=== PATIENT | male | born 1950 | race Caucasian/White ===

== ENCOUNTER 2016-12-06 12:43 | Day surgery (SDC) | payer MEDICARE, BC ==
[2016-12-06] MEDS ORDERED: LIDOCAINE 2% MDV (20MG/ML) 20ML VIAL IV ONE (14:00)
[2016-12-06] MEDS ORDERED: MIDAZOLAM HCL 2MG/2ML VIAL IV ONE (14:00)
[2016-12-06] MEDS ORDERED: PROPOFOL 10 MG/ML VIAL IV ONE (14:00)
--- NOTE | 2016-12-08 13:00 | Operative Note ---
DATE OF SURGERY: 12/06/2016 Surgeon: Cali Osborn DO Referring physician: Michael Tinsley DO OPERATION: COLONOSCOPY TO THE CECUM WITH COLD BIOPSY FORCEPS POLYPECTOMY x2, AND COLD SNARE POLYPECTOMY x3. INDICATION: Prior history of colon polyps. The patient returns at this time for surveillance. Intravenous sedation was administered by the Department of Anesthesiology and included Diprivan titrated to effect. PROCEDURE: Following informed consent from this alert individual, including a discussion of the risks and benefits of the procedure and then opportunity for the patient to ask questions, the patient was in the left lateral decubitus position. Digital rectal examination was performed. No abnormalities were noted. Following this, the Olympus PCF 180 Video Colonoscope was inserted in the rectum without resistance. The rectal mucosa had a normal appearance with normal folds and distensibility. The colonoscope was advanced up through the colon to the level of the cecum without much difficulty. Throughout the bowel, the mucosa appeared normal, folds were normal. The bowel was filled with distensible. The cecum was defined by noting the appendiceal orifice and the ileocecal valve. The colon preparation was good. Retroflexion in the cecum failed to demonstrate changes. At the base of the cecum, at the level of the appendicial orifice, there were two diminutive polyps noted, each removed with application of biopsy forceps. Slow withdrawal through the colon revealed 3 additional polyps, each measuring approximately 4 to 5 mm in size and each was removed with cold snare polypectomy and suctioned through the colonoscope into collection trap. Polyps were located in the ascending colon, the descending colon, and sigmoid colon. Retroflexion in the rectum revealed small internal hemorrhoids. No other changes appreciated. The patient tolerated the procedure well and was returned to the recovery area in stable condition. IMPRESSION: 1. Two 3 mm cecal polyps removed with biopsy forceps. 2. A 5 mm ascending colon polyp, a 5 mm descending colon polyp, and a 4 to 5 mm sigmoid colon polyp, all removed with cold snare polypectomy. 3. Small internal hemorrhoids. RECOMMENDATIONS: Further recommendations will be forthcoming pending the results of pathology obtained today, but most likely the patient will require a recheck colonoscopy in three years' time. Follow up will also be with Dr. Michael Tinsley. As always, thank you for allowing me to participate in the care of your patient. CC: MICHAEL TINSLEY D.O. Dr. Cali DAVENPORT
== END 2016-12-06 14:57 | disposition home or self-care (01) ==
LOC: HOP 12:43
PROVIDERS: ATTEND Internal Medicine Gastroenterology
DX: Z86.010 Personal history of colon polyps (principal); D12.0 Benign neoplasm of cecum; D12.4 Benign neoplasm of descending colon; K63.5 Polyp of colon; K64.8 Other hemorrhoids